=== PATIENT | male | born 1970 | race Caucasian/White ===

== ENCOUNTER 2021-03-04 17:21 | Inpatient (IN) | payer OTHER ==
[2021-03-04] MEDS ORDERED: ACETAMINOPHEN 1000 MG/100 ML BAG IVPB ONE (18:47)
[2021-03-04] MEDS ORDERED: SODIUM CHLORIDE 0.9% 500 ML INFUS.BAG IV ONE ×2 (18:51→22:49)
[2021-03-04] MEDS ORDERED: ACETAMINOPHEN INJECTION 100 ML IVPB ONE (19:38)
[2021-03-04 20:38] LABS: EOS % 0.1 % (0-4.5); HEMATOCRIT 35.1 % (35.4-49); HEMOGLOBIN 11.3 GM/dL (11.7-16.9); LYMPH % 3.6 % (8-40); MCH 27.7 pg (25.7-33.7); MCHC 32.1 g/dl (32.0-35.9); MEAN CELL VOLUME 86.2 fl (80-96); MEAN PLT VOLUME 8.9 fl (7.5-11.1); MONO % 5.1 % (3.8-10.2); NEUT % 91.2 % (42.8-82.8); PLATELET COUNT 298 10^3/uL (134-434); RBC 4.08 M/mm3 (4.00-5.60); RDW 14.9 % (11.9-15.9); WHITE BLOOD COUNT 16.8 K/mm3 (4.0-10.0)
[2021-03-04 21:01] LABS: ANISOCYTOSIS 1+; MACROCYTOSIS 0; PLATELET ESTIMATE NORMAL
[2021-03-04 21:19] LABS: CHLORIDE 88 mmol/L (98-107); SODIUM 126 mmol/L (136-145)
[2021-03-04 21:21] LABS: CALCIUM 8.4 mg/dL (8.5-10.1)
[2021-03-04 21:22] LABS: ALBUMIN 2.6 g/dl (3.4-5.0); ANION GAP 17 MMOL/L (8-16); BLOOD UREA NITROGEN 39.4 mg/dL (7-18); CO2 21 mmol/L (21-32); MAGNESIUM 2.1 mg/dL (1.8-2.4)
[2021-03-04 21:25] LABS: CREATININE 2.3 mg/dL (0.55-1.3); LACTIC ACID 2.2 mmol/L (0.4-2.0); SGOT/AST 28 U/L (15-37); SGPT/ALT 34 U/L (13-61)
[2021-03-04 21:27] LABS: BILIRUBIN,TOTAL 0.5 mg/dL (0.2-1); TOT PROT 6.7 g/dl (6.4-8.2)
[2021-03-04 21:28] LABS: ALK PHOS 148 U/L (45-117)
[2021-03-04] MEDS ORDERED: VANCOMYCIN 1 GM in D5W (PRE-DOCKED) 1,000 MG/250 ML IVPB ONE (21:55)
[2021-03-04] MEDS ORDERED: PIPERACILLIN/TAZOB 3.375 GM 3.375 GM in DEXTROSE 5%-WATER - 50 ML IVPB ONE (21:55)
[2021-03-04] MEDS ORDERED: VANCOMYCIN 1 GRAM (PRE-DOCKED) 1,000 MG/250 ML BAG IVPB ONE (22:31)
[2021-03-04] MEDS ORDERED: PIPERACILLIN/TAZOB 3.375 GM 3.375 GM/50 ML BAG IVPB ONE (22:31)
[2021-03-04 22:35] LABS: PH,URINE 5.5 (5.0-8.0); URINE APPEARANCE CLEAR; URINE BILIRUBIN NEGATIVE (NEGATIVE); URINE COLOR YELLOW; URINE GLUCOSE (UA) 3+ (NEGATIVE); URINE KETONE TRACE (NEGATIVE); URINE LEUK ESTERASE TRACE (NEGATIVE); URINE NITRITE POSITIVE (NEGATIVE); URINE PROTEIN 1+ (NEGATIVE); URINE UROBILINOGEN 0.2 mg/dL (0.2-1.0)
[2021-03-04 22:42] LABS: GLUCOSE,RANDOM 750 mg/dL (74-106)
[2021-03-04 22:44] LABS: EPI CELLS 1.5 /uL (0-25.1); HYALINE CASTS 0.38 /uL (0-3.1); URINE BACTERIA 8396.4 /uL (0-1359); URINE RBC 51.5 /uL (0-23.9)
[2021-03-05 00:18] LABS: VENOUS BASE EXCESS -2.3 mmol/L (-2-2); VENOUS O2 SATURATION 76.9 % (70-80); VENOUS PCO2 39.6 mmHg (38-52); VENOUS PH 7.376 (7.310-7.410)
[2021-03-05] MEDS ORDERED: SODIUM CHLORIDE 1,000 ML IV STA (01:59)
[2021-03-05] MEDS ORDERED: INSULIN REGULAR HUMAN 100 UNITS/ML *VIAL IVPUSH ONE ×2 (05:34→08:27)
[2021-03-05] MEDS ORDERED: INSULIN REGULAR HUMAN 100 UNITS/ML *VIAL SQ ONE (05:52)
[2021-03-05 06:07] LABS: VENOUS BASE EXCESS -2.3 mmol/L (-2-2); VENOUS PCO2 37.5 mmHg (38-52); VENOUS PH 7.391 (7.310-7.410)
[2021-03-05 07:02] LABS: CHLORIDE 98 mmol/L (98-107); SODIUM 134 mmol/L (136-145)
[2021-03-05 07:03] LABS: CALCIUM 8.1 mg/dL (8.5-10.1)
[2021-03-05 07:04] LABS: ANION GAP 13 MMOL/L (8-16); BLOOD UREA NITROGEN 32.5 mg/dL (7-18); CO2 23 mmol/L (21-32)
[2021-03-05 07:07] LABS: CREATININE 1.8 mg/dL (0.55-1.3)
[2021-03-05 07:22] LABS: GLUCOSE,RANDOM 492 mg/dL (74-106)
[2021-03-05] MEDS ORDERED: VANCOMYCIN 1 GM in D5W (PRE-DOCKED) 1,000 MG/250 ML IVPB ONE (08:22)
[2021-03-05] MEDS ORDERED: INSULIN (LEVEMIR) 100 UNITS/ML UNITS SQ SCH (08:45)
[2021-03-05] MEDS ORDERED: HEPARIN NA (PORCINE) 5,000 UNITS/ML 1ML VIAL SQ SCH (10:00)
[2021-03-05] MEDS ORDERED: PIPERACILLIN/TAZOB 2.25 GM 2.25 GM in DEXTROSE 5%-WATER - 50 ML IVPB SCH ×3 (10:15→15:00)
[2021-03-05] MEDS ORDERED: VANCOMYCIN 1 GRAM (PRE-DOCKED) 1,000 MG/250 ML BAG IVPB ONE (10:29)
[2021-03-05] MEDS ORDERED: HEPARIN NA (PORCINE) 5,000 UNITS/ML 1ML VIAL ONE (10:29)
[2021-03-05] MEDS ORDERED: PIPERACILLIN/TAZOB 3.375 GM 3.375 GM/50 ML BAG IVPB ONE ×2 (10:30→20:30)
[2021-03-05] MEDS: SODIUM CHLORIDE 1,000 ML IV SCH (10:42)
[2021-03-05] MEDS: HEPARIN NA (PORCINE) 5,000 UNITS/ML 1ML VIAL SQ SCH ×2 (13:00→23:48)
[2021-03-05 14:09] LABS: HEMATOCRIT 31.9 % (35.4-49); HEMOGLOBIN 10.3 GM/dL (11.7-16.9); MCH 27.2 pg (25.7-33.7); MCHC 32.5 g/dl (32.0-35.9); MEAN CELL VOLUME 83.9 fl (80-96); MEAN PLT VOLUME 8.6 fl (7.5-11.1); PLATELET COUNT 311 10^3/uL (134-434); RDW 14.7 % (11.9-15.9); WHITE BLOOD COUNT 15.6 K/mm3 (4.0-10.0)
[2021-03-05 14:26] LABS: CHLORIDE 99 mmol/L (98-107); SODIUM 135 mmol/L (136-145)
[2021-03-05 14:29] LABS: ALBUMIN 2.4 g/dl (3.4-5.0); ANION GAP 12 MMOL/L (8-16); BLOOD UREA NITROGEN 29.9 mg/dL (7-18); CALCIUM 8.4 mg/dL (8.5-10.1); CO2 23 mmol/L (21-32); MAGNESIUM 2.5 mg/dL (1.8-2.4)
[2021-03-05 14:31] LABS: SGPT/ALT 29 U/L (13-61)
[2021-03-05 14:32] LABS: CREATININE 1.7 mg/dL (0.55-1.3); PHOSPHOROUS 1.7 mg/dL (2.5-4.9); SGOT/AST 24 U/L (15-37)
[2021-03-05 14:33] LABS: BILIRUBIN,TOTAL 0.5 mg/dL (0.2-1)
[2021-03-05 14:34] LABS: ALK PHOS 133 U/L (45-117)
[2021-03-05 14:44] LABS: GLUCOSE,RANDOM 424 mg/dL (74-106)
[2021-03-05] MEDS: INSULIN SLIDING SCALE (NOVOLOG) 1 VIAL SQ SCH ×4 (15:44→23:44)
[2021-03-05] MEDS ORDERED: POTASSIUM CHLORIDE TABS 20 MEQ TABLET.ER (FP) PO ONE ×2 (16:27→20:29)
[2021-03-05] MEDS ORDERED: POTASSIUM PHOSPHATE 30 MM in SODIUM CHLORIDE 500 ML IVPB ONE (16:45)
[2021-03-05 17:35] LABS: ANISOCYTOSIS 1+; MACROCYTOSIS 0
[2021-03-05] MEDS ORDERED: PIPERACILLIN/TAZOB 3.375 GM 3.375 GM in DEXTROSE 5%-WATER - 50 ML IVPB SCH (18:00)
[2021-03-05] MEDS ORDERED: ACETAMINOPHEN 1000 MG/100 ML BAG IVPB ONE (20:27)
[2021-03-05] MEDS ORDERED: ACETAMINOPHEN 325 MG TABLET (FP) ONE (20:29)
[2021-03-05] MEDS ORDERED: cefTRIAXone SODIUM 1 GM VIAL ONE (20:30)
[2021-03-05] MEDS ORDERED: INSULIN SLIDING SCALE (NOVOLOG) 1 VIAL SQ ONE (20:31)
[2021-03-05] MEDS ORDERED: INSULIN (LEVEMIR) 100 UNITS/ML UNITS SQ ONE (20:31)
[2021-03-05] MEDS: INSULIN (LEVEMIR) 100 UNITS/ML UNITS SQ SCH ×2 (20:48→23:45)
[2021-03-05] MEDS: CEFTRIAXONE 1 GM in DEXTROSE 5%-WATER - 50 ML IVPB SCH (20:49)
[2021-03-05] MEDS: PIPERACILLIN/TAZOB 3.375 GM 3.375 GM in DEXTROSE 5%-WATER - 50 ML IVPB SCH (20:49)
[2021-03-06] MEDS ORDERED: PIPERACILLIN/TAZOBACTAM 3.375 GM VIAL IVPB ONE ×4 (01:13→17:26)
[2021-03-06] MEDS ORDERED: DEXTROSE 5%-WATER - 50 ML IVPB ONE ×5 (01:13→17:26)
[2021-03-06] MEDS: PIPERACILLIN/TAZOB 3.375 GM 3.375 GM in DEXTROSE 5%-WATER - 50 ML IVPB SCH ×3 (02:31→17:29)
[2021-03-06] MEDS: INSULIN SLIDING SCALE (NOVOLOG) 1 VIAL SQ SCH ×4 (06:41→21:27)
[2021-03-06] MEDS: INSULIN (LEVEMIR) 100 UNITS/ML UNITS SQ SCH ×2 (06:42→21:27)
[2021-03-06] MEDS: HEPARIN NA (PORCINE) 5,000 UNITS/ML 1ML VIAL SQ SCH ×3 (06:45→21:27)
[2021-03-06 09:51] LABS: HEMATOCRIT 31.6 % (35.4-49); HEMOGLOBIN 10.3 GM/dL (11.7-16.9); MCH 27.2 pg (25.7-33.7); MCHC 32.5 g/dl (32.0-35.9); MEAN CELL VOLUME 83.9 fl (80-96); MEAN PLT VOLUME 8.3 fl (7.5-11.1); PLATELET COUNT 297 10^3/uL (134-434); RBC 3.76 M/mm3 (4.00-5.60); RDW 14.6 % (11.9-15.9); WHITE BLOOD COUNT 13.2 K/mm3 (4.0-10.0)
[2021-03-06] MEDS ORDERED: cefTRIAXone SODIUM 1 GM VIAL ONE (10:19)
[2021-03-06 10:22] LABS: CALCIUM 8.8 mg/dL (8.5-10.1)
[2021-03-06 10:26] LABS: CREATININE 1.5 mg/dL (0.55-1.3)
[2021-03-06 10:27] LABS: BILIRUBIN,TOTAL 0.7 mg/dL (0.2-1); TOT PROT 5.7 g/dl (6.4-8.2)
[2021-03-06] MEDS: CEFTRIAXONE 1 GM in DEXTROSE 5%-WATER - 50 ML IVPB SCH (10:31)
[2021-03-06 10:49] LABS: ANISOCYTOSIS 2+; MACROCYTOSIS 0; PLATELET ESTIMATE NORMAL
[2021-03-06] MEDS ORDERED: LIDOCAINE HCL 2% JELLY (30 ML/TUBE) TP PRN (14:27)
[2021-03-06] MEDS ORDERED: POTASSIUM CHLORIDE TABS 20 MEQ TABLET.ER (FP) PO ONE ×2 (14:45→15:15)
[2021-03-06] MEDS: ACETAMINOPHEN 325 MG TABLET (FP) PO PRN (15:08)
[2021-03-06] MEDS ORDERED: TAMSULOSIN HCL 0.4 MG CAP PO ONE (15:31)
[2021-03-06 16:05] VITALS: BMI 37.5
[2021-03-06] MEDS: SODIUM CHLORIDE 1,000 ML IV SCH (17:15)
[2021-03-06] MEDS: OXYBUTYNIN CHLORIDE 5 MG TABLET PO SCH ×2 (17:29→21:27)
[2021-03-07] MEDS ORDERED: PIPERACILLIN/TAZOBACTAM 3.375 GM VIAL IVPB ONE ×3 (01:15→17:22)
[2021-03-07] MEDS ORDERED: DEXTROSE 5%-WATER - 50 ML IVPB ONE ×3 (01:16→17:22)
[2021-03-07] MEDS: PIPERACILLIN/TAZOB 3.375 GM 3.375 GM in DEXTROSE 5%-WATER - 50 ML IVPB SCH ×3 (01:30→17:45)
[2021-03-07] MEDS: traMADol HCL 50 MG TABLET PO PRN ×3 (03:54→23:14)
[2021-03-07] MEDS: SODIUM CHLORIDE 1,000 ML IV SCH ×3 (06:28→17:48)
[2021-03-07] MEDS: OXYBUTYNIN CHLORIDE 5 MG TABLET PO SCH ×3 (06:28→23:14)
[2021-03-07] MEDS: HEPARIN NA (PORCINE) 5,000 UNITS/ML 1ML VIAL SQ SCH ×3 (06:28→23:18)
[2021-03-07] MEDS: INSULIN SLIDING SCALE (NOVOLOG) 1 VIAL SQ SCH ×4 (06:32→23:20)
[2021-03-07] MEDS: INSULIN (LEVEMIR) 100 UNITS/ML UNITS SQ SCH ×2 (06:33→23:21)
[2021-03-07] MEDS ORDERED: PT OWN MED DRAWER 7, Y5N ONE (09:46)
[2021-03-07] MEDS: FINASTERIDE 5 MG TABLET (FP) PO SCH (09:53)
[2021-03-07] MEDS: ACETAMINOPHEN 325 MG TABLET (FP) PO PRN (09:53)
[2021-03-07 10:33] LABS: HEMATOCRIT 30.9 % (35.4-49); HEMOGLOBIN 10.1 GM/dL (11.7-16.9); MCH 27.6 pg (25.7-33.7); MCHC 32.8 g/dl (32.0-35.9); MEAN CELL VOLUME 84.2 fl (80-96); MEAN PLT VOLUME 8.4 fl (7.5-11.1); PLATELET COUNT 310 10^3/uL (134-434); RBC 3.67 M/mm3 (4.00-5.60); RDW 14.8 % (11.9-15.9); WHITE BLOOD COUNT 10.7 K/mm3 (4.0-10.0)
[2021-03-07 10:50] LABS: CALCIUM 8.4 mg/dL (8.5-10.1)
[2021-03-07 10:51] LABS: BLOOD UREA NITROGEN 22.4 mg/dL (7-18)
[2021-03-07 10:55] LABS: CREATININE 1.3 mg/dL (0.55-1.3)
[2021-03-07] MEDS: amLODIPine BESYLATE 10 MG TABLET (FP) PO SCH (11:59)
[2021-03-07] MEDS: POLYETHYLENE GLYCOL (HEALTHYLAX) 3350 17 GM PACKET PO SCH (12:00)
[2021-03-07] MEDS ORDERED: SODIUM PHOSPHATE/NA BIPHOS 133 ML ENEMA RC PRN (14:38)
[2021-03-07] MEDS ORDERED: BISACODYL 10 MG SUPP.RECT PR ONE (15:30)
[2021-03-07] MEDS ORDERED: BISACODYL 5 MG TABLET.DR (FP) PO ONE (15:30)
[2021-03-07] MEDS: SENNOSIDES 8.6MG TABLET (FP) PO SCH (16:26)
[2021-03-08] MEDS ORDERED: PIPERACILLIN/TAZOBACTAM 3.375 GM VIAL IVPB ONE (01:10)
[2021-03-08] MEDS ORDERED: DEXTROSE 5%-WATER - 50 ML IVPB ONE ×2 (01:11→10:34)
[2021-03-08] MEDS: PIPERACILLIN/TAZOB 3.375 GM 3.375 GM in DEXTROSE 5%-WATER - 50 ML IVPB SCH ×2 (03:03→12:23)
[2021-03-08] MEDS: OXYBUTYNIN CHLORIDE 5 MG TABLET PO SCH ×2 (06:33→14:47)
[2021-03-08] MEDS: ACETAMINOPHEN 325 MG TABLET (FP) PO PRN (06:33)
[2021-03-08] MEDS: HEPARIN NA (PORCINE) 5,000 UNITS/ML 1ML VIAL SQ SCH ×2 (06:34→08:34)
[2021-03-08] MEDS: INSULIN (LEVEMIR) 100 UNITS/ML UNITS SQ SCH ×2 (06:36→07:01)
[2021-03-08] MEDS: INSULIN SLIDING SCALE (NOVOLOG) 1 VIAL SQ SCH ×2 (06:59→11:50)
[2021-03-08 08:03] VITALS: BP 134/77; PULSE 91; TEMP 98.7
[2021-03-08 08:24] LABS: HEMATOCRIT 31.3 % (35.4-49); HEMOGLOBIN 10.6 GM/dL (11.7-16.9); MCH 28.2 pg (25.7-33.7); MCHC 33.8 g/dl (32.0-35.9); MEAN CELL VOLUME 83.4 fl (80-96); MEAN PLT VOLUME 8.1 fl (7.5-11.1); PLATELET COUNT 328 10^3/uL (134-434); RBC 3.76 M/mm3 (4.00-5.60); RDW 14.6 % (11.9-15.9); WHITE BLOOD COUNT 10.9 K/mm3 (4.0-10.0)
[2021-03-08] MEDS ORDERED: TAMSULOSIN HCL 0.4 MG CAP PO SCH ×2 (08:30→10:30)
[2021-03-08 09:05] LABS: BLOOD UREA NITROGEN 23.5 mg/dL (7-18); MAGNESIUM 2.1 mg/dL (1.8-2.4)
[2021-03-08 09:06] LABS: CALCIUM 8.6 mg/dL (8.5-10.1)
[2021-03-08 09:08] LABS: CREATININE 1.4 mg/dL (0.55-1.3); PHOSPHOROUS 3.8 mg/dL (2.5-4.9)
[2021-03-08] MEDS ORDERED: cefTRIAXone SODIUM 1 GM VIAL ONE (10:34)
[2021-03-08] MEDS ORDERED: CEFTRIAXONE 1 GM in DEXTROSE 5%-WATER - 50 ML IVPB SCH (10:45)
[2021-03-08] MEDS: FINASTERIDE 5 MG TABLET (FP) PO SCH (11:01)
[2021-03-08] MEDS: amLODIPine BESYLATE 10 MG TABLET (FP) PO SCH (11:01)
[2021-03-08] MEDS: SENNOSIDES 8.6MG TABLET (FP) PO SCH (11:02)
[2021-03-08] MEDS: SODIUM CHLORIDE 1,000 ML IV SCH (11:02)
[2021-03-08] MEDS: POLYETHYLENE GLYCOL (HEALTHYLAX) 3350 17 GM PACKET PO SCH (11:02)
[2021-03-08 13:00] LABS: N-TERMINAL BNP 811.8 pg/ml (5-125)
[2021-03-09 13:27] LABS: HIV INTERPRETATION NEGATIVE (NEGATIVE)
== END 2021-03-08 15:54 | disposition home or self-care (01) | DRG 720 ==
LOC: JER 17:21 → JERBED 22:49 → J7W 03-05 22:40
PROVIDERS: ADMIT Internal Medicine
DX: A41.89 Other specified sepsis (principal); R00.0 Tachycardia, unspecified; N39.0 Urinary tract infection, site not specified; N17.9 Acute kidney failure, unspecified; E11.10 Type 2 diabetes mellitus with ketoacidosis without coma; E87.1 Hypo-osmolality and hyponatremia; N40.1 Benign prostatic hyperplasia with lower urinary tract symptoms; R33.9 Retention of urine, unspecified; N13.6 Pyonephrosis; R33.8 Other retention of urine; E66.9 Obesity, unspecified; Z68.37 Body mass index [BMI] 37.0-37.9, adult; K57.90 Diverticulosis of intestine, part unspecified, without perforation or abscess without bleeding; K59.00 Constipation, unspecified; E87.2 Acidosis; D72.829 Elevated white blood cell count, unspecified; B96.20 Unspecified Escherichia coli [E. coli] as the cause of diseases classified elsewhere; D64.9 Anemia, unspecified
CPT/HCPCS: 36415; 71045-TC-FY; 74176-TC; 76775-TC; 80048; 80053; 80061; 81003; 82010; 82550; 82553; 82728; 82803; 82962; 83036; 83540; 83550; 83605; 83690; 83735; 83880; 84100; 84443; 84466; 84484; 85025; 85027; 87040; 87086; 87186; 87389; 87491; 87591; 87661; 93005; 93010; 99285-25; C9803; J0131; J1644; U0003; U0005